=== PATIENT | female | born 1950 | race Caucasian/White ===

== ENCOUNTER 2019-09-27 06:57 | Day surgery (SDC) ==
[2019-09-19 10:34] LABS: HEMATOCRIT 46.8 % (37.0-47.0); HEMOGLOBIN 15.4 g/dL (12.0-16.0); MCH 29.2 PG (27-31); MCHC 32.9 g/dL (33-37); MCV 88.8 FL (81-99); MPV 9.9 FL (7.4-10.4); RBC 5.27 XMIL (4.2-5.4); RDW 13.5 % (11.5-14.5); WBC 8.61 X1000 (4.8-10.8)
--- NOTE | 2019-09-19 10:34 | EKG Report ---
Test Performed on : 09/19/2019 09:34:27 AM Test Reason : PAT Blood Pressure : / mmHG Vent. Rate : 076 BPM Atrial Rate : 076 BPM P-R Int : 142 ms QRS Dur : 096 ms QT Int : 368 ms P-R-T Axes : 048 053 055 degrees QTc Int : 414 ms Normal sinus rhythm. Normal ECG When compared with ECG of 28-MAR-2016 16:42, No significant change was found Confirmed by Jennyfer KNIGHT, Kane ([id number]) on 09/20/2019 10:39:04 AM
[~2019-09-27 06:57] MED LIST: DIPRIVAN 1% ONE
[2019-09-27] MEDS ORDERED: PEPCID ONE (07:17)
[2019-09-27] MEDS ORDERED: REGLAN ONE (07:18)
[2019-09-27] MEDS ORDERED: LR 1,000 ML ONE (07:18)
[2019-09-27] MEDS ORDERED: KEFZOL 1 GM/D5W 1 GM/50 ML IVPB ONE (07:18)
[2019-09-27] MEDS ORDERED: VALIUM ONE (07:52)
[2019-09-27] MEDS ORDERED: METHYLENE BLUE 0.5% ONE (08:13)
[2019-09-27] MEDS ORDERED: DECADRON ONE (09:10)
[2019-09-27] MEDS ORDERED: ZOFRAN ONE (09:10)
[2019-09-27] MEDS ORDERED: TORADOL ONE (09:10)
[2019-09-27] MEDS ORDERED: XYLOCAINE-MPF 2% ONE (09:10)
[2019-09-27] MEDS ORDERED: FENTANYL ONE (09:12)
[2019-09-27] MEDS: DILAUDID ONE ×2 (09:53→09:56)
[2019-09-27] MEDS ORDERED: DILAUDID IV PRN (10:28)
[2019-09-27] MEDS ORDERED: NORCO-10 PO PRN (10:28)
[2019-09-27] MEDS ORDERED: ZOFRAN IV PRN (10:28)
[2019-09-27] MEDS ORDERED: LR 1,000 ML IV SCH (10:28)
--- NOTE | 2019-09-27 10:41 | OPERATIVE NOTE ---
PROCEDURE DATE: 09/27/2019 PROCEDURE PERFORMED: Left total mastectomy. SURGEON: Viral Pacheco MD. PHYSICAL METEOROLOGIST: Gregorio Gordon. PREOPERATIVE DIAGNOSIS: History of breast cancer and recurrent fat necrosis. POSTOPERATIVE DIAGNOSIS: History of breast cancer and recurrent fat necrosis. INDICATIONS: A 68-year-old who has had breast cancer, lumpectomy and radiation. She now has had frequent abnormal mammograms with fat necrosis, and she simply wants her breast removed to resolve the issues. DESCRIPTION OF PROCEDURE: Under satisfactory general anesthesia, the left breast was prepped and draped in a sterile fashion. We made an elliptical chance around the nipple- areolar complex. We incised the skin in the area of the ellipse, and we achieved satisfactory hemostasis throughout the skin incision. We then placed skin hooks cephalad and developed a superior flap to the clavicle. We then did it inferiorly and went down to the serratus and rectus. We then took the breast off the chest wall from medial to lateral. As we passed the pectoralis minor, we then amputated the breast there. We then copiously irrigated and achieved satisfactory hemostasis with electrocautery. We placed a Suleiman drain laterally that went through the axilla up over the muscle, secured to the skin with a 2-0 silk. We then reapproximated the skin with ana maria. Sterile dressing was applied. Negative pressure was applied to the drain to evacuate the space. She tolerated it well and was sent to the recovery room in satisfactory condition. cc: Viral Pacheco MD
--- NOTE | 2019-09-27 18:09 | GENERAL SURGERY PROGRESS NOTE ---
DATE: 09/27/2019 It is 5:30 p.m. She is postop mastectomy today. She has had not much drainage about 60 mL. Her bandage is dry. She feels good. She should be able to be discharged home the morning of the with or without a drain. Dr. Ellington is to cover the weekend. cc: Viral Pacheco MD
[2019-09-27 18:21] LABS: URINE SOURCE CLEAN CATCH
[2019-09-27 18:27] LABS: BILIRUBIN URINE NEGATIVE (NEGATIVE); BLOOD URINE NEGATIVE (NEGATIVE); COLOR YELLOW; GLUCOSE URINE NEGATIVE (NEGATIVE); KETONE URINE NEGATIVE (NEGATIVE); LEUKOCYTES URINE SMALL (NEGATIVE); NITRITE URINE NEGATIVE (NEGATIVE); PH URINE 6.5; PROTEIN URINE NEGATIVE (NEGATIVE); SP GRAVITY URINE 1.011; TURBIDITY URINE CLEAR (CLEAR); UROBILINOGEN URINE NORMAL (NORMAL)
[2019-09-27 18:41] LABS: UR EPITHELIAL CELLS <10 /HPF (<10); URINE BACTERIA NEGATIVE /HPF; URINE RBC <10 /HPF (<10)
[2019-09-28] MEDS ORDERED: PRILOSEC PO SCH (07:00)
--- NOTE | 2019-09-28 07:09 | GENERAL SURGERY PROGRESS NOTE ---
DATE: 09/28/2019 SUBJECTIVE: Patient is doing well. OBJECTIVE: Vital Signs: Patient is currently afebrile. Vital signs are stable. General: No acute distress. Cardiovascular: Regular rate and rhythm. Lungs: Grossly clear. Chest wall: Without significant swelling. ELIAS drain with serosanguineous output recorded at 100. ASSESSMENT AND PLAN: A 68-year-old female status post left mastectomy. Postoperative state. At this time, I think she is safe to go home. Given the fact her Kermit- Gaytan drain still had over 100, we will keep it in place. We will have her follow up with one of the partners next week to have her drain removed. Otherwise, we will continue to monitor her. We will send her home today. cc: MD Viral Padron MD
[2019-09-28 07:47] VITALS: BP 151/71
[2019-09-28] MEDS ORDERED: LEXAPRO PO SCH (09:00)
== END 2019-09-28 09:56 | disposition home or self-care (01) ==
LOC: OR 06:57 → 4N 06:57 → OR 09-28 09:56
PROVIDERS: ATTEND Surgery